=== PATIENT | male | born 1975 | race Caucasian/White ===

== ENCOUNTER 2019-03-15 18:59 | Emergency (ER) | payer MEDICARE, MEDICAID ==
[2019-03-15] MEDS ORDERED: Aspirin 81 MG Tab.Chew PO ONE (19:00)
[2019-03-15] MEDS ORDERED: Nitroglycerin 0.4 MG Tab.SL SL PRN (19:00)
[2019-03-15] MEDS ORDERED: Sodium Chloride 0.9% 10 ML Syringe FLUSH PRN (19:00)
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
[2019-03-15] MEDS ORDERED: Sodium Chloride 0.9% 1,000 ML IV ONE (19:32)
[2019-03-15] MEDS ORDERED: Alum Hydroxide/Mag Hydroxide 15 ML, Lidocaine 2% 15 ML PO ONE ×2 (19:32)
[2019-03-15 20:16] VITALS: PULSE 122
[2019-03-16 00:26] VITALS: BP 142/89
--- NOTE | 2019-03-16 11:05 | CR ---
INDICATION: Chest pain. CHEST: AP upright portable view of the chest, 03/15/19, was compared with 06/14, revealing the heart to be remaining normal in size and shape. Overlying EKG leads are noted. The aorta is only very minimally tortuous. An active infiltrate or effusion was not identified. IMPRESSION: No acute process. MTDD
== END 2019-03-15 21:20 | disposition home or self-care (01) ==
LOC: FB.ED 18:59
DX: K21.9 Gastro-esophageal reflux disease without esophagitis (principal); E87.1 Hypo-osmolality and hyponatremia; R94.5 Abnormal results of liver function studies; G89.29 Other chronic pain; M79.675 Pain in left toe(s); R79.1 Abnormal coagulation profile; Z72.0 Tobacco use; Z72.89 Other problems related to lifestyle
CPT/HCPCS: 36415; 71045; 80053; 84484; 85025; 85379; 93005; 93010; 96360; 99283; 99285; A9270; G0480; J7030

== ENCOUNTER 2020-04-28 23:41 | Emergency (ER) | payer MEDICARE, MEDICAID ==
[2020-04-29 00:07] VITALS: BP 186/109; PULSE 115
[2020-04-29] MEDS ORDERED: Ketorolac 30 MG/ML SDV IVPUSH ONE (00:49)
[2020-04-29] MEDS ORDERED: methylPREDNISolone Sodium Succinate 125 MG/2 ML SDV IVPUSH ONE (00:50)
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
== END 2020-04-29 02:23 | disposition home or self-care (01) ==
LOC: FB.ED 23:41
DX: R09.1 Pleurisy (principal); F10.129 Alcohol abuse with intoxication, unspecified; I10 Essential (primary) hypertension; F17.210 Nicotine dependence, cigarettes, uncomplicated; Y90.0 Blood alcohol level of less than 20 mg/100 ml
CPT/HCPCS: 36415; 80048; 80307; 84484; 85025; 93005; 96374; 96375; 99285; J1885; J2930

== ENCOUNTER 2020-10-29 19:40 | Emergency (ER) | payer MEDICARE, MEDICAID ==
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
[2020-10-29] MEDS ORDERED: cloNIDine 0.1 MG Tab PO ONE (21:03)
[2020-10-30 06:21] VITALS: BP 158/107; PULSE 87
== END 2020-10-29 21:55 | disposition home or self-care (01) ==
LOC: FB.ED 19:40
DX: F10.129 Alcohol abuse with intoxication, unspecified (principal); Y90.5 Blood alcohol level of 100-119 mg/100 ml; I10 Essential (primary) hypertension; K21.9 Gastro-esophageal reflux disease without esophagitis; Z79.899 Other long term (current) drug therapy
CPT/HCPCS: 36415; 70450; 72125; 80048; 80307; 84484; 85025; 93005; 93010; 99283; 99285-25; A9270-GY

== ENCOUNTER 2022-06-03 22:15 | Emergency (ER) | payer MEDICARE, MEDICAID ==
[2022-06-03] MEDS ORDERED: traMADol 50 MG Tab PO STA (22:43)
[2022-06-03] MEDS ORDERED: Ibuprofen 800 MG Tab PO ONE (22:43)
[2022-06-03] MEDS ORDERED: Acetaminophen 500 MG Tab PO ONE (22:43)
[2022-06-03 23:25] VITALS: BP 144/93; PULSE 109
== END 2022-06-03 23:35 | disposition home or self-care (01) ==
LOC: FB.ED 22:15
DX: S39.012A Strain of muscle, fascia and tendon of lower back, initial encounter (principal); I10 Essential (primary) hypertension; K21.9 Gastro-esophageal reflux disease without esophagitis; Z79.899 Other long term (current) drug therapy; W18.30XA Fall on same level, unspecified, initial encounter
CPT/HCPCS: 72100; 72220; 99282; 99283; A9270-GY

== ENCOUNTER 2022-10-08 20:36 | Emergency (ER) | payer MEDICARE, MEDICAID ==
[2022-10-08 21:17] LABS: BLOOD UREA NITROGEN,BUN 7 mg/dL (7-18); BUN/CREATININE RATIO 11.7 (9-20); CALCIUM 8.6 mg/dL (8.6-10.2); CARBON DIOXIDE,CO2 23 mmol/L (21-32); CHLORIDE,CL 95 mmol/L (100-110); CREATININE 0.6 mg/dL (0.70-1.30); ESTIMATED GFR 118 mL/min (>60); GLUCOSE RANDOM 89 mg/dL (80-116); POTASSIUM,K 3.8 mmol/L (3.5-5.3); SODIUM,NA 129 mmol/L (135-145)
[2022-10-08 21:21] LABS: BASOPHILS ABSOLUTE AUTO 0.1 x10-3/uL (0.0-0.3); EOSINOPHILS ABSOLUTE AUTO 0.4 x10-3/uL (0.0-0.6); EOSINOPHILS PERCENT AUTO 4.2 % (0.1-6.8); HEMATOCRIT 40.4 % (38.3-50.1); LYMPHOCYTES ABSOLUTE AUTO 2.8 x10-3/uL (0.5-4.5); LYMPHOCYTES PERCENT AUTO 30.9 % (15.8-45.3); MEAN CORPUSCULAR HEMOGLOBIN 33.1 pg (27.0-33.3); MEAN CORPUSCULAR HGB CONC 34.7 g/dL (28.7-35.3); MEAN CORPUSCULAR VOLUME 95.5 fL (80.8-98.7); MEAN PLATELET VOLUME 7.6 fL (6.7-11.0); MONOCYTES ABSOLUTE AUTO 0.7 x10-3/uL (0.0-1.2); MONOCYTES PERCENT AUTO 8.2 % (5.5-15.2); NEUTROPHILS PERCENT AUTO 55.7 % (40.3-71.8); PLATELET COUNT,PLT 186 x10(3)uL (117-477); RED BLOOD CELL COUNT 4.24 x10(6)uL (3.90-5.90); RED CELL DISTRIBUTION WIDTH 12.9 % (12.4-15.0)
[2022-10-08 21:24] LABS: ALANINE AMINOTRANSFERASE,ALT 59 U/L (12-36); ALBUMIN 3.9 g/dL (3.5-5.2); ALKALINE PHOSPHATASE 111 IU/L (56-112); ASPARTATE AMNIOTRANSFERASE,AST 51 IU/L (5-25); BILIRUBIN TOTAL 0.2 mg/dL (0.1-1.3); PROTEIN TOTAL,TP 7.9 g/dL (6.0-8.0)
[2022-10-09 00:12] VITALS: BP 125/84; PULSE 91
== END 2022-10-08 22:42 | disposition home or self-care (01) ==
LOC: FB.ED 20:36
DX: R09.1 Pleurisy (principal); I10 Essential (primary) hypertension; K21.9 Gastro-esophageal reflux disease without esophagitis; Z79.899 Other long term (current) drug therapy
CPT/HCPCS: 36415; 71046; 80053; 84484; 85025; 93005; 99285

== ENCOUNTER 2024-06-11 19:01 | Emergency (ER) | payer MEDICARE, MEDICAID ==
[2024-06-11] MEDS ORDERED: Amoxicillin/Clavulanate K 875-125 MG Tab PO ONE (19:02)
[2024-06-11 19:47] LABS: BASOPHILS ABSOLUTE AUTO 0.1 x10-3/uL (0.0-0.3); BASOPHILS PERCENT AUTO 1.2 % (0.3-3.8); EOSINOPHILS ABSOLUTE AUTO 0.2 x10-3/uL (0.0-0.6); HEMATOCRIT 41.4 % (38.3-50.1); HEMOGLOBIN 14.6 g/dL (12.9-17.7); LYMPHOCYTES ABSOLUTE AUTO 2.8 x10-3/uL (0.5-4.5); LYMPHOCYTES PERCENT AUTO 28.7 % (15.8-45.3); MEAN CORPUSCULAR HEMOGLOBIN 32.9 pg (27.0-33.3); MEAN CORPUSCULAR HGB CONC 35.2 g/dL (28.7-35.3); MEAN CORPUSCULAR VOLUME 93.4 fL (80.8-98.7); MEAN PLATELET VOLUME 6.9 fL (6.7-11.0); MONOCYTES ABSOLUTE AUTO 0.6 x10-3/uL (0.0-1.2); MONOCYTES PERCENT AUTO 6.5 % (5.5-15.2); NEUTROPHILS PERCENT AUTO 61.6 % (40.3-71.8); PLATELET COUNT,PLT 188 x10(3)uL (117-477); RED BLOOD CELL COUNT 4.43 x10(6)uL (3.90-5.90); RED CELL DISTRIBUTION WIDTH 13.1 % (12.4-15.0); WHITE BLOOD CELL COUNT,WBC 9.7 x10-3/uL (3.2-10.1)
[2024-06-11 19:56] LABS: BLOOD UREA NITROGEN,BUN 5 mg/dL (7-18); BUN/CREATININE RATIO 8.3 (9-20); CALCIUM 8.9 mg/dL (8.6-10.2); CARBON DIOXIDE,CO2 26 mmol/L (21-32); CHLORIDE,CL 93 mmol/L (100-110); CREATININE 0.6 mg/dL (0.70-1.30); EST CRCL DRUG DOSING (CG) 136.84 mL/min; ESTIMATED GFR 117 mL/min (>60); GLUCOSE RANDOM 90 mg/dL (80-116); POTASSIUM,K 3.8 mmol/L (3.5-5.3); SODIUM,NA 129 mmol/L (135-145)
[2024-06-11 20:43] VITALS: BP 149/100; PULSE 93
== END 2024-06-11 20:35 | disposition home or self-care (01) ==
LOC: FB.ED 19:01
DX: J37.0 Chronic laryngitis (principal); I10 Essential (primary) hypertension; M54.2 Cervicalgia; K21.9 Gastro-esophageal reflux disease without esophagitis; F17.210 Nicotine dependence, cigarettes, uncomplicated; Z79.899 Other long term (current) drug therapy
CPT/HCPCS: 36415; 70490; 71046; 80048; 85025; 86308; 87651; 99284; A9270

== ENCOUNTER 2024-09-16 20:44 | Emergency (ER) | payer MEDICARE, MEDICAID ==
[2024-09-16 21:43] LABS: BASOPHILS ABSOLUTE AUTO 0.1 x10-3/uL (0.0-0.3); BASOPHILS PERCENT AUTO 1.5 % (0.3-3.8); BLOOD UREA NITROGEN,BUN 8 mg/dL (7-18); BUN/CREATININE RATIO 13.3 (9-20); CALCIUM 8.5 mg/dL (8.6-10.2); CARBON DIOXIDE,CO2 24 mmol/L (21-32); CHLORIDE,CL 96 mmol/L (100-110); CREATININE 0.6 mg/dL (0.70-1.30); EOSINOPHILS ABSOLUTE AUTO 0.2 x10-3/uL (0.0-0.6); EOSINOPHILS PERCENT AUTO 2.4 % (0.1-6.8); EST CRCL DRUG DOSING (CG) 142.04 mL/min; ESTIMATED GFR 117 mL/min (>60); GLUCOSE RANDOM 103 mg/dL (80-116); HEMATOCRIT 37.8 % (38.3-50.1); HEMOGLOBIN 13.5 g/dL (12.9-17.7); LYMPHOCYTES ABSOLUTE AUTO 2.4 x10-3/uL (0.5-4.5); LYMPHOCYTES PERCENT AUTO 28.1 % (15.8-45.3); MEAN CORPUSCULAR HEMOGLOBIN 34.2 pg (27.0-33.3); MEAN CORPUSCULAR HGB CONC 35.6 g/dL (28.7-35.3); MEAN CORPUSCULAR VOLUME 96.1 fL (80.8-98.7); MEAN PLATELET VOLUME 7.2 fL (6.7-11.0); MONOCYTES ABSOLUTE AUTO 0.8 x10-3/uL (0.0-1.2); MONOCYTES PERCENT AUTO 9.3 % (5.5-15.2); NEUTROPHILS ABSOLUTE AUTO 5.1 x10-3/uL (1.7-6.9); NEUTROPHILS PERCENT AUTO 58.7 % (40.3-71.8); PLATELET COUNT,PLT 186 x10(3)uL (117-477); POTASSIUM,K 3.2 mmol/L (3.5-5.3); RED BLOOD CELL COUNT 3.94 x10(6)uL (3.90-5.90); RED CELL DISTRIBUTION WIDTH 13.2 % (12.4-15.0); SODIUM,NA 129 mmol/L (135-145); WHITE BLOOD CELL COUNT,WBC 8.6 x10-3/uL (3.2-10.1)
[2024-09-16 21:49] LABS: ALANINE AMINOTRANSFERASE,ALT 28 U/L (12-36); ALBUMIN 3.9 g/dL (3.5-5.2); ALKALINE PHOSPHATASE 83 IU/L (56-112); ASPARTATE AMNIOTRANSFERASE,AST 37 IU/L (5-25); BILIRUBIN TOTAL 0.4 mg/dL (0.1-1.3); PROTEIN TOTAL,TP 7.7 g/dL (6.0-8.0)
[2024-09-16 21:51] LABS: TROPONIN I 6.4 pg/mL (4.0-60.3)
[2024-09-16 21:56] LABS: C-REACTIVE PROTEIN < 0.50 mg/dL (<0.50)
[2024-09-16 21:57] LABS: ETHANOL BLOOD MEDICAL 0.25 % (<0.03)
[2024-09-16 22:23] VITALS: BP 114/72; PULSE 81
== END 2024-09-16 22:24 | disposition home or self-care (01) ==
LOC: FB.ED 20:44
DX: E87.6 Hypokalemia (principal); E83.42 Hypomagnesemia; F10.120 Alcohol abuse with intoxication, uncomplicated; I10 Essential (primary) hypertension; K21.9 Gastro-esophageal reflux disease without esophagitis; F17.200 Nicotine dependence, unspecified, uncomplicated; Z79.899 Other long term (current) drug therapy; Y90.0 Blood alcohol level of less than 20 mg/100 ml
CPT/HCPCS: 36415; 80053; 80307; 83735; 84484; 85025; 86140; 99284

== ENCOUNTER 2025-01-10 19:25 | Emergency (ER) | payer MEDICARE, MEDICAID ==
[2025-01-10 19:48] LABS: MEAN PLATELET VOLUME 7.3 fL (6.7-11.0); PLATELET COUNT,PLT 218 x10(3)uL (117-477); RED BLOOD CELL COUNT 4.15 x10(6)uL (3.90-5.90); RED CELL DISTRIBUTION WIDTH 13.1 % (12.4-15.0); WHITE BLOOD CELL COUNT,WBC 9.9 x10-3/uL (3.2-10.1)
[2025-01-10 19:49] LABS: BLOOD UREA NITROGEN,BUN 8 mg/dL (7-18); CARBON DIOXIDE,CO2 26 mmol/L (21-32); CHLORIDE,CL 95 mmol/L (100-110); CREATININE 0.8 mg/dL (0.70-1.30); ESTIMATED GFR 107 mL/min (>60); GLUCOSE RANDOM 93 mg/dL (80-116); POTASSIUM,K 3.9 mmol/L (3.5-5.3); SODIUM,NA 130 mmol/L (135-145)
[2025-01-10 19:55] LABS: A/G RATIO 1.0; ALANINE AMINOTRANSFERASE,ALT 28 U/L (12-36); ASPARTATE AMNIOTRANSFERASE,AST 27 IU/L (5-25); BILIRUBIN TOTAL 0.3 mg/dL (0.1-1.3); PROTEIN TOTAL,TP 8.1 g/dL (6.0-8.0)
[2025-01-10 19:58] LABS: LACTIC ACID 0.8 mmol/L (0.4-2.0)
[2025-01-10 20:05] LABS: ETHANOL BLOOD MEDICAL 0.31 % (<0.03)
[2025-01-10 20:06] LABS: BASOPHILS PERCENT MAN 2 % (0-2); EOSINOPHILS PERCENT MAN 2 % (0-5); LYMPHOCYTES PERCENT MAN 23 % (13-37); MONOCYTES PERCENT MAN 4 % (4-12); SEG NEUTROPHILS PERCENT MAN 69 % (46-82)
[2025-01-10] MEDS: Sodium Chloride 0.9% 10 ML Syringe FLUSH PRN (20:41)
[2025-01-10] MEDS: Magnesium Sulfate 2 GM/50 mL 2 GM in Premix Bag 1 BAG IV ONE (20:43)
[2025-01-10 21:04] VITALS: BP 146/84; PULSE 79
== END 2025-01-10 21:35 | disposition home or self-care (01) ==
LOC: FB.ED 19:25
DX: E87.1 Hypo-osmolality and hyponatremia (principal); E83.42 Hypomagnesemia; F10.120 Alcohol abuse with intoxication, uncomplicated; I10 Essential (primary) hypertension; K21.9 Gastro-esophageal reflux disease without esophagitis; F17.210 Nicotine dependence, cigarettes, uncomplicated; Z79.899 Other long term (current) drug therapy; Y90.9 Presence of alcohol in blood, level not specified
CPT/HCPCS: 36415; 71045; 80053; 80307; 83605; 83690; 83735; 84484; 85025; 86140; 93005; 93010; 96365; 99284; 99285; J3475; J7030